=== PATIENT | female | born 1930 | race Caucasian/White ===

== ENCOUNTER 2017-02-06 14:09 | Emergency (ER) | payer MEDICARE, OTHER ==
[2017-02-06 14:51] LABS: Hematocrit 40.8 % (37.0-47.0); Hemoglobin 13.8 gm/dL (12.5-16.0); Mean Cell Volume 86.3 fl (78-100); Mean Corpuscular Hemoglobin 29.2 pg (27-31); Mean Corpuscular Hgb Conc 33.8 g/dl (32-36); Mean Platelet Volume 10.8 fl (6.0-9.5); Neutrophil # 5.4 K/mm3 (1.3-6.0); Neutrophil % 67.6 % (42-75.0); Platelet Count 257 K/mm3 (150-450); Red Blood Count 4.73 M/mm3 (4.2-5.4)
[2017-02-06 15:10] LABS: Albumin * 3.6 gm/dl (3.4-5.0); Anion Gap 13.7 mmol/L (6.8-13.8); BUN/Creatinine Ratio 20.3 (9.0-21.6); Bilirubin, Total 0.5 mg/dL (0.0-1.1); Ca. Corrected For Albumin 8.9 mg/dL (8.4-10.2); Calcium * 8.9 mg/dL (7.9-10.9); Carbon Dioxide 29.5 mmol/L (24-32.6); Potassium 4.2 mmol/L (3.4-4.6)
[2017-02-06] MEDS ORDERED: FUROSEMIDE 10 MG/ML VIAL IV ONE (15:17)
[2017-02-06] MEDS ORDERED: FUROSEMIDE 40 MG TABLET ONE (15:29)
[2017-02-06] MEDS ORDERED: FUROSEMIDE 40 MG TABLET PO ONE (15:30)
[2017-02-06 15:54] VITALS: BP 161/94
--- NOTE | 2017-02-06 16:14 | ERNOTE ---
Dyspnea - General Time Seen by Provider: 02/06/17 14:14 Source: patient Exam Limitations: no limitations - Immun/Allergies/Home Medications Immunizations: IMMUNIZATION HX Immunizations Up to Date No History of Influenza Vaccine Yes Allergies/Adverse Reactions: Allergies No Known Allergies Allergy (Verified 03/21/15 11:11) Home Medications: HOME MEDICATIONS Ascorbic Acid [Vitamin C] 500 mg PO DAILY 06/04/13 [Last Taken Unknown] Enalapril Maleate 10 mg PO DAILY 06/04/13 [Last Taken Unknown] Insulin Aspart [Novolog] 0 - 15 unit SQ ACHS 06/04/13 [Last Taken Unknown] Metoprolol Tartrate [Lopressor] 50 mg PO BID 06/04/13 [Last Taken Unknown] Multivit-Min/FA/Lycopene/Lut [Centrum Silver Tablet] 1 each PO DAILY 06/04/13 [ Last Taken Unknown] Insulin Detemir [Levemir] 40 units SQ HS 06/05/13 [Last Taken Unknown] Furosemide [Lasix] 20 mg PO DAILY 03/21/15 [Last Taken Unknown] Gabapentin 100 mg PO HS 03/21/15 [Last Taken Unknown] Warfarin Sodium [Coumadin] 6 mg PO DAILY 03/21/15 [Last Taken Unknown] traZODone HCL [Desyrel] 50 mg PO HS 03/21/15 [Last Taken Unknown] Atorvastatin Calcium [Lipitor] 20 mg PO DAILY 02/06/17 [Last Taken Unknown] traMADol HCL [Tramadol HCl] 50 mg PO PRN 02/06/17 [Last Taken Unknown] - History of Present Illness Narrative: 86-year-old female presents to the ER for progressive shortness of breath mostly in the morning. She denies any chest pain she states that she has become more short of breath in the morning when she gets up. She denies any swelling in her ankles. She has a history of atrial fibrillation and some CHF Review of Systems - Review of Systems Constitutional: Present: no symptoms reported EYE: Present: no symptoms reported ENT: Present: no symptoms reported Respiratory: Present: shortness of breath Cardiology: Present: no symptoms reported Gastrointestinal/Abdominal: Present: no symptoms reported Genitourinary: Present: no symptoms reported Musculoskeletal: Present: no symptoms reported Skin: Present: no symptoms reported - Patient's Past Medical History Patient History - Medical: Diabetes Type 2, Diabetes Type 2 Insulin Dependent, Other Patient History - Cardiac/Respiratory: Atrial Fibrillation, Hypertension, Hyperlipidemia Patient History - Cancer: No Hx of Cancer Patient History - Surgical Procedures: Total Knee Replacement Patient History - Other: None LMP (females 10-50): Menopausal - Family History parents Family History - Medical: - Social History Living Situations: home Abuse History: No History of abuse Psych History: Hx of Depression Smoking Status: Never smoker Alcohol Use: none Drug Use: none - Immunizations Immunizations Up to Date: No History of Influenza Vaccine: Yes Physical Exam - Physical Exam General Appearance: Present: wd/wn, alert, no apparent distress - initially patient appears short of breath because she just wants to the exam room however after having been in our ER and having been diuresed with 20 of Lasix patient feel significantly better Head Exam: Present: normal inspection, no evidence of injury Ears, Nose, Throat: Present: normal ENT inspection Neck: Present: normal inspection, nontender Respiratory: Present: no respiratory distress, normal breath sounds, no accessory muscle use, chest nontender, lungs clear Cardiovascular/Chest: Present: regular rate, rhythm, no murmur, normal peripheral pulses Back Exam: Present: normal inspection Extremity Exam: Present: normal inspection, non-tender, no edema. Absent: extremity edema ED Progress - Results and Orders Patient's Lab Results:: I have reviewed the patient's lab results. - Vital Signs Patient's Vital Signs:: I have reviewed the patient's vital signs. Vital Signs: Vital Signs 02/06/17 02/06/17 02/06/17 14:10 14:20 15:00 Temperature 36.7 C Pulse Rate 87 87 81 Respiratory 18 18 19 Rate Blood Pressure 145/81 145/81 168/95 O2 Sat by Pulse 96 96 96 Oximetry 02/06/17 02/06/17 15:32 15:53 Temperature Pulse Rate 92 91 Respiratory 19 Rate Blood Pressure 168/96 161/94 O2 Sat by Pulse 97 Oximetry - EKG EKG: NSR - Progress/Reassessment Chief Complaint: Dyspnea Plan - Plan Plan: Patient felt significantly better after 20 mg of Lasix by mouth. She was able to diurese and she ambulated without any shortness of breath and her oxygen saturation remained at 95% while ambulating. At this time the patient's diagnosis is mild CHF and she is going to follow up with her primary care doctor she is stable and appropriate for discharge Departure Clinical Impression: CHF (congestive heart failure) Qualifiers: Congestive heart failure type: unspecified congestive heart failure type Congestive heart failure chronicity: unspecified congestive heart failure chronicity Qualified Code(s): I50.9 - Heart failure, unspecified - Departure Disposition: Home self-care Condition: Good Instructions: Heart Failure, [id number] Additional Instructions: Please follow-up with your primary care doctor or come back to the ER if your shortness of breath gets worse.
== END 2017-02-06 16:15 | disposition home or self-care (01) ==
LOC: ER 14:09
DX: I50.9 Heart failure, unspecified (principal); E11.9 Type 2 diabetes mellitus without complications; Z79.4 Long term (current) use of insulin; I48.91 Unspecified atrial fibrillation; Z79.01 Long term (current) use of anticoagulants; I10 Essential (primary) hypertension; E78.5 Hyperlipidemia, unspecified

== ENCOUNTER 2017-05-25 07:34 | Observation (INO) ==
[2017-05-25 08:05] LABS: Hematocrit 36.4 % (37.0-47.0); Hemoglobin 12.4 gm/dL (12.5-16.0); Mean Cell Volume 86.1 fl (78-100); Mean Corpuscular Hemoglobin 29.3 pg (27-31); Mean Corpuscular Hgb Conc 34.1 g/dl (32-36); Mean Platelet Volume 10.6 fl (6.0-9.5); Neutrophil # 7.6 K/mm3 (1.3-6.0); Neutrophil % 75.4 % (42-75.0); Platelet Count 267 K/mm3 (150-450); Red Blood Count 4.23 M/mm3 (4.2-5.4); Red Cell Distribution Width 13.2 % (11.5-14.0)
[2017-05-25 08:15] LABS: Urine Appearance Clear; Urine Bacteria 1+; Urine Bilirubin Negative (NEGATIVE); Urine Blood Negative /ul (NEGATIVE); Urine Color Yellow; Urine Ketone Negative (NEGATIVE); Urine Nitrite Negative (NEGATIVE); Urine Protein Negative (NEGATIVE); Urine RBC 0-5 /hpf (0-5); Urine Specific Gravity 1.025 SP.GR. (1.005-1.010); Urine Urobilinogen Normal (NORMAL); Urine Yeast Few - 1+
[2017-05-25 08:24] LABS: Albumin * 3.2 gm/dl (3.4-5.0); Anion Gap 13.2 mmol/L (6.8-13.8); BUN/Creatinine Ratio 20.3 (9.0-21.6); Bilirubin, Total 0.9 mg/dL (0.0-1.1); CRP 8.3 mg/dL (0.0-0.9); Ca. Corrected For Albumin 8.9 mg/dL (8.4-10.2); Calcium * 8.6 mg/dL (7.9-10.9); Carbon Dioxide 28.9 mmol/L (24-32.6); Potassium 4.1 mmol/L (3.4-4.6); Total Protein 7.9 gm/dL (6.2-8.2); Uric Acid 8.7 mg/dL (2.6-7.2)
[2017-05-25] MEDS ORDERED: ERTAPENEM SODIUM 1,000 MG in NORMAL SALINE 50 ML IV ONE (08:30)
[2017-05-25 09:09] LABS: Prothrombin Time (Patient) 21.4 Seconds (9.0-11.0)
[2017-05-25 09:12] LABS: INR 2.12 INR (0.90-1.10)
[2017-05-25] MEDS ORDERED: COLCHICINE 0.6 MG TABLET PO ONE (09:13)
--- NOTE | 2017-05-25 09:13 | ERNOTE ---
Integumentary HPI - Narrative Date of Service: 05/25/17 - General Presenting Symptoms: other - foot pain Time Seen by Provider: 05/25/17 07:58 Source: patient, family Exam Limitations: no limitations - Immun/Allergies/Home Medications Immunizations: IMMUNIZATION HX Immunizations Up to Date Yes History of Influenza Vaccine Yes Hx Pneumococcal Vaccination Yes Allergies/Adverse Reactions: Allergies Allergy/AdvReac Type Severity Reaction Status Date / Time No Known Allergies Allergy Verified 05/25/17 07:44 Home Medications: HOME MEDICATIONS Ascorbic Acid [Vitamin C] 500 mg PO DAILY 06/04/13 [Last Taken Unknown] Enalapril Maleate 10 mg PO DAILY 06/04/13 [Last Taken Unknown] Insulin Aspart [Novolog] 0 - 15 unit SQ ACHS 06/04/13 [Last Taken Unknown] Metoprolol Tartrate [Lopressor] 50 mg PO BID 06/04/13 [Last Taken Unknown] Multivit-Min/FA/Lycopene/Lut [Centrum Silver Tablet] 1 each PO DAILY 06/04/13 [ Last Taken Unknown] Insulin Detemir [Levemir] 40 units SQ HS 06/05/13 [Last Taken Unknown] Furosemide [Lasix] 20 mg PO DAILY 03/21/15 [Last Taken Unknown] Gabapentin 100 mg PO HS 03/21/15 [Last Taken Unknown] Warfarin Sodium [Coumadin] 6 mg PO DAILY 03/21/15 [Last Taken Unknown] traZODone HCL [Desyrel] 50 mg PO HS 03/21/15 [Last Taken Unknown] Atorvastatin Calcium [Lipitor] 20 mg PO DAILY 02/06/17 [Last Taken Unknown] traMADol HCL [Tramadol HCl] 50 mg PO PRN 02/06/17 [Last Taken Unknown] Cefuroxime Axetil [Ceftin] 250 mg PO Q12H #14 tab 05/21/17 [Last Taken Unknown] - History of Present Illness Narrative: Patient presents to the ED for worsening pain, worsening redness right foot. She was seen here 4 days ago with foot pain on the right and redness. Had an extensive workup at that time. Despite outpatient antibiotics has worsened with increased redness and swelling, increased pain right foot. Chandan pain has gotten so bad that she cannot get out of bed. It took 2 people to help her get in today. No clear fevers. No acute weakness. Location: Reports: other - right foot Quality: Reports: painful Severity: severe Modifying Factors - (Improves): Reports: other - rest Modifying Factors - (Worsens): Reports: other - movement, weight bearing Associated Symptoms: Denies: fever Prior Treatment: Reports: recently seen, currently on antibiotics Review of Systems - Review of Systems Constitutional: Absent: fever ENT: Absent: sore throat Respiratory: Absent: shortness of breath Cardiology: Absent: chest pain Gastrointestinal/Abdominal: Absent: abdominal pain Genitourinary: Absent: dysuria Musculoskeletal: Present: See HPI Skin: Present: See HPI Neurological: Absent: weakness - Patient's Past Medical History Patient History - Medical: Diabetes Type 2, Diabetes Type 2 Insulin Dependent, Other Patient History - Cardiac/Respiratory: Atrial Fibrillation, Hypertension, Hyperlipidemia Patient History - Cancer: No Hx of Cancer Patient History - Surgical Procedures: Appendectomy, Hysterectomy, Total Knee Replacement Patient History - Other: None LMP (females 10-50): Menopausal - Family History parents Family History - Medical: - Social History Living Situations: home Abuse History: No History of abuse Psych History: Hx of Depression Smoking Status: Never smoker Alcohol Use: none Drug Use: none - Immunizations Immunizations Up to Date: Yes Hx Pneumococcal Vaccination: Yes History of Influenza Vaccine: Yes Physical Exam - Physical Exam General Appearance: Present: alert, no apparent distress Head Exam: Present: normal inspection Eye Exam: Normal inspection: bilateral, PERRL: bilateral Ears, Nose, Throat: Present: normal ENT inspection Neck: Present: normal inspection Respiratory: Present: no respiratory distress, normal breath sounds, no accessory muscle use, lungs clear Cardiovascular/Chest: Present: regular rate, rhythm, normal peripheral pulses Gastrointestinal/Abdominal: Present: normal bowel sounds, nontender, nondistended, soft Back Exam: Absent: CVA tenderness (R), CVA tenderness (L) Extremity Exam: Present: other - warmth and redness right lateral foot. This is clinically c/w cellulitis. No abscess, no nec fasc. Neurological Exam: Present: alert, no motor/sensory deficits Skin Exam: Present: normal color, warm/dry ED Progress - Results and Orders Patient's Lab Results:: I have reviewed the patient's lab results. - Vital Signs Patient's Vital Signs:: I have reviewed the patient's vital signs. Vital Signs: Vital Signs 05/25/17 05/25/17 05/25/17 07:36 08:12 08:45 Temperature 36.9 C Pulse Rate 120 H 127 H 122 H Respiratory 16 17 16 Rate Blood Pressure 150/104 151/83 143/95 O2 Sat by Pulse 96 97 99 Oximetry - X-Ray X-Ray #1 X-Ray: foot Interpretation: Interp. by me X-ray Comments: I reviewed official radiology report - Progress/Reassessment Chief Complaint: Cellulitis Progress Note-Subjective: 05/25/17 09:11 IV abx given. Failure or outpatient management. Pt cannot get around at home, given pain and Sx. I spoke with Dr Machado who will admit. Departure Clinical Impression: Failure of outpatient treatment, Cellulitis, Gout - Departure Disposition: [facility] Condition: Stable
[2017-05-25] MEDS ORDERED: COLCHICINE 0.6 MG TABLET ONE (09:17)
[2017-05-25] MEDS ORDERED: NORMAL SALINE 500 ML IV ONE (11:02)
[2017-05-25] MEDS: ENALAPRIL MALEATE 5 MG TABLET PO SCH (11:58)
[2017-05-25] MEDS: LEVOFLOXACIN IN DEXTROSE 5 % 500 MG/100 ML BAG IV SCH (12:06)
--- NOTE | 2017-05-25 12:43 | HP ---
Chief Complaint - Chief Complaint Date of Service: 05/25/17 Time of Service: 10:00 Chief Complaint: seizures History of Present Illness: Verónica Moreno is an 86-year-old female who is developed severe pain in her right lateral foot with redness swelling fever and pain present. She is unable to bear weight on the foot at this time. She has a history of gouty arthritis of the great toes and has noticed some redness this morning and the right toe although it is not yet painful. 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 Patient History - Cardiac/Respiratory: Atrial Fibrillation, Hypertension, Hyperlipidemia Patient History - Cancer: No Hx of Cancer Patient History - Surgical Procedures: Appendectomy, D & C, Hysterectomy, Total Knee Replacement Patient History - Other: None LMP (females 10-50): Menopausal - Family History parents Family History - Medical: - Social History Living Situations: alone Abuse History: No History of abuse Psych History: Hx of Depression Smoking Status: Former smoker Have you smoked in the past 12 months: No Alcohol Use: none Drug Use: none - Immunizations Immunizations Up to Date: Yes Hx Pneumococcal Vaccination: Yes History of Influenza Vaccine: Yes Review Of Systems (GEN) - Review of Systems Generalized/Overall Review: Present: No Symptoms Reported EENTM: Present: No Symptoms Reported Respiratory: Present: No Symptoms Reported Cardiac: Present: No Symptoms Reported, Other - History of atrial fibrillation Abdominal: Present: No Symptoms Reported Genitourinary: Present: No Symptoms Reported Musculoskeletal: Present: Joint Pain, Gout, Other - Soft tissue pain right lateral foot Neurological: Present: No Symptoms Reported Skin: Present: No Symptoms Reported, Dryness Endocrine: Present: No Symptoms Reported, Other - Insulin-dependent diabetes mellitus Misc: All systems neg except as marked Allergies/Adverse Reactions: Allergies Allergy/AdvReac Type Severity Reaction Status Date / Time No Known Allergies Allergy Verified 05/25/17 10:43 Home Medications: HOME MEDICATIONS Ascorbic Acid [Vitamin C] 500 mg PO DAILY 06/04/13 [Last Taken Unknown] Enalapril Maleate 10 mg PO DAILY 06/04/13 [Last Taken Unknown] Insulin Aspart [Novolog] 0 - 15 unit SQ ACHS 06/04/13 [Last Taken Unknown] Metoprolol Tartrate [Lopressor] 50 mg PO BID 06/04/13 [Last Taken Unknown] Multivit-Min/FA/Lycopene/Lut [Centrum Silver Tablet] 1 each PO DAILY 06/04/13 [ Last Taken Unknown] Insulin Detemir [Levemir] 40 units SQ HS 06/05/13 [Last Taken Unknown] Furosemide [Lasix] 40 mg PO DAILY 03/21/15 [Last Taken Unknown] Gabapentin 100 mg PO HS 03/21/15 [Last Taken Unknown] Warfarin Sodium [Coumadin] 5 mg PO DAILY 03/21/15 [Last Taken Unknown] traZODone HCL [Desyrel] 50 mg PO HS 03/21/15 [Last Taken Unknown] Atorvastatin Calcium [Lipitor] 20 mg PO DAILY 02/06/17 [Last Taken Unknown] traMADol HCL [Tramadol HCl] 50 mg PO PRN 02/06/17 [Last Taken Unknown] Cefuroxime Axetil [Ceftin] 250 mg PO Q12H #14 tab 05/21/17 [Last Taken Unknown] Exam - Exam Vital Signs: Vital Signs - Last Taken Temp 37.2 C 05/25/17 10:04 Pulse 110 H 05/25/17 11:58 Resp 18 05/25/17 10:04 BP 126/71 05/25/17 11:58 Pulse Ox 95 05/25/17 10:04 Constitutional: Present: Alert, Oriented x3, Cooperative, Well developed, Well nourished, Mild distress, Elderly, Obese ENT Exam: Present: normal ENT inspection Eye Exam: bilateral eye: normal inspection, PERRL, EOMI Neck: Present: non-tender, full range of motion Back Exam: Present: normal inspection Breasts: Present: Exam deferred Respiratory: Present: chest non-tender, lungs clear, normal breath sounds, no respiratory distress, no accessory muscle use Cardiovascular/Chest: Present: normal peripheral pulses, no chest tenderness, no edema, no JVD, no murmur, no rub, tachycardia, irregularly irregular Peripheral Pulses: carotid (R): 2+, carotid (L): 2+, femoral (R): 2+, femoral (L ): 2+, dorsalis-pedis (R): 2+, dorsalis-pedis (L): 2+, radial (R): 2+, radial (L ): 2+ Abdomen: Present: Normal bowel sounds, soft, nontender, nondistended, no rebound tenderness, no hepatospenomegaly /Rectal: Present: Exam deferred Extremity: Present: normal range of motion, no calf tenderness, normal capillary refill, inflammation, pedal edema, swelling. Absent: claudication, calf tenderness Skin Exam: Present: normal color, pallor Lymphatic: Present: no adenopathy Neurologic: Present: flat folder II-XII nml as tested, normal cerebellar test, no motor/ sensory deficits, alert, normal mood/affect, oriented x 3, abnormal gait - Unable to bear weight on the right foot. Absent: abnormal cerebellar tests, motor weakness, sensory deficit, depressed affect Appearance: Present: appropriate appearance, appropriate insight, neat, no memory impairment Eye contact: Present: cooperative, good eye contact, normal speech Thoughts: Present: normal thought pattern, no apparent hallucination, auditory hallucinations, normal mood /affect. Absent: delusions Diagnostic Studies: Laboratory Results WBC 10.0 K/mm3 (4.0-10.5) 05/25/17 08:03 RBC 4.23 M/mm3 (4.2-5.4) 05/25/17 08:03 Hgb 12.4 gm/dL (12.5-16.0) L 05/25/17 08:03 Hct 36.4 % (37.0-47.0) L 05/25/17 08:03 MCV 86.1 fl (78-100) 05/25/17 08:03 MCH 29.3 pg (27-31) 05/25/17 08:03 MCHC 34.1 g/dl (32-36) 05/25/17 08:03 RDW 13.2 % (11.5-14.0) 05/25/17 08:03 Plt Count 267 K/mm3 (150-450) 05/25/17 08:03 MPV 10.6 fl (6.0-9.5) H 05/25/17 08:03 Immature Gran % (Auto) 0.50 % (0.001-0.429) H 05/25/17 08:03 Immature Gran # (Auto) 0.05 K/mm3 (0.000-0.0310) H 05/25/17 08:03 Neutrophils % 75.4 % (42-75.0) H 05/25/17 08:03 Lymphocytes % 13.9 % (20-51) L 05/25/17 08:03 Monocytes % 8.6 % (0.0-9) 05/25/17 08:03 Eosinophils % 0.9 % (0.0-3.0) 05/25/17 08:03 Basophils % 0.7 % (0.0-1.0) 05/25/17 08:03 Nucleated RBC % 0.0 k/mm3 (0-1) 05/25/17 08:03 Neutrophils # 7.6 K/mm3 (1.3-6.0) H 05/25/17 08:03 Lymphocytes # 1.4 k/mm3 (1.5-3.5) L 05/25/17 08:03 Monocytes # 0.9 k/mm3 (0.0-1.0) 05/25/17 08:03 Eosinophils # 0.1 k/mm3 (0.0-0.7) 05/25/17 08:03 Absolute Basophils 0.1 k/mm3 (0.0-0.1) 05/25/17 08:03 PT 21.4 Seconds (9.0-11.0) H 05/25/17 08:35 INR (Anticoag Therapy) 2.12 INR (0.90-1.10) H 05/25/17 08:35 Sodium 135 mmol/L (132-142) 05/25/17 08:00 Plasma Sodium 136 mmol/L (130-142) 05/25/17 08:00 Potassium 4.1 mmol/L (3.4-4.6) 05/25/17 08:00 Chloride 97 mmol/L (97-106) 05/25/17 08:00 Carbon Dioxide 28.9 mmol/L (24-32.6) 05/25/17 08:00 Anion Gap 13.2 mmol/L (6.8-13.8) 05/25/17 08:00 BUN 31 mg/dL (3-23) H 05/25/17 08:00 Creatinine 1.53 mg/dL (0.4-1.4) H 05/25/17 08:00 Est GFR (Non-Af Amer) 34 mL/min (60-130) L 05/25/17 08:00 BUN/Creatinine Ratio 20.3 (9.0-21.6) 05/25/17 08:00 Random Glucose 184 mg/dL (70-110) H 05/25/17 08:00 Uric Acid 8.7 mg/dL (2.6-7.2) H 05/25/17 08:00 Calcium 8.6 mg/dL (7.9-10.9) 05/25/17 08:00 Calcium Adj for Albumin 8.9 mg/dL (8.4-10.2) 05/25/17 08:00 Total Bilirubin 0.9 mg/dL (0.0-1.1) 05/25/17 08:00 AST 21 U/L (0-48) 05/25/17 08:00 ALT 20 U/L (19-67) 05/25/17 08:00 Alkaline Phosphatase 119 U/L (50-170) 05/25/17 08:00 C-Reactive Prot, Quant 8.3 mg/dL (0.0-0.9) H 05/25/17 08:00 Total Protein 7.9 gm/dL (6.2-8.2) 05/25/17 08:00 Albumin 3.2 gm/dl (3.4-5.0) L 05/25/17 08:00 Urine Color Yellow 05/25/17 07:50 Urine Appearance Clear 05/25/17 07:50 Urine pH 6.0 pH (5.0-7.0) 05/25/17 07:50 Ur Specific Anderson 1.025 SP.GR. (1.005-1.010) 05/25/17 07:50 Urine Protein Negative mg/dL (NEGATIVE) 05/25/17 07:50 Urine Glucose (UA) Negative mg/dL (NEGATIVE) 05/25/17 07:50 Urine Ketones Negative mg/dL (NEGATIVE) 05/25/17 07:50 Urine Blood Negative /ul (NEGATIVE) 05/25/17 07:50 Urine Nitrate Negative (NEGATIVE) 05/25/17 07:50 Urine Bilirubin Negative mg/dl (NEGATIVE) 05/25/17 07:50 Urine Urobilinogen Normal EU/dl (NORMAL) 05/25/17 07:50 Ur Leukocyte Esterase 100 /ul (NEGATIVE) H 05/25/17 07:50 Urine RBC 0-5 /hpf (0-5) 05/25/17 07:50 Urine WBC 10-25 /hpf (0-5) H 05/25/17 07:50 Ur Epithelial Cells 0-5 /hpf (0-5) 05/25/17 07:50 Urine Bacteria 1+ (NONE) H 05/25/17 07:50 Urine Yeast Few - 1+ (NONE) H 05/25/17 07:50 Urine Culture Comments Culture to follow 05/25/17 07:50 Assessment/Plan - Narrative Narrative: In treatment of the cellulitis I have chosen levofloxacin. She had a home treatment failure of Ceftin. This is corrected for her chronic stage III CAD. A dose of colchicine was given in the emergency room for her hyperuricemia and perhaps early signs of gout with some mild redness of the right great impinging. Because of her CKD she cannot have NSAID therapy and because of her and as some of the diabetes and reluctant to give her steroids. We'll have to monitor the effectiveness of the antibiotic and reducing the pain and swelling in the right lateral foot. She should not be on allopurinol also because of her CKD today. We will begin progressing her weightbearing as pain allows. Hopefully she'll be able to be discharged tomorrow - Assessment/Plan (1) Cellulitis Assessment: Right foot Problem: Acute Qualifiers: Site of cellulitis: other site Qualified Code(s): L03.818 - Cellulitis of other sites (2) Chronic kidney disease (CKD) stage G3b/A1, moderately decreased glomerular filtration rate (GFR) between 30-44 mL/min/1.73 square meter and albuminuria creatinine ratio less than 30 mg/g Problem: Chronic (3) Diabetes mellitus, insulin dependent (IDDM), controlled Problem: Chronic (4) Gout Problem: Chronic Qualifiers: Gout site: foot Gout etiology: due to renal impairment Chronicity: chronic Laterality: unspecified laterality Presence of tophus: without tophus Qualified Code(s): 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 Moreno is currently not ambulatory and unable to bear weight on her right foot. She lives alone in a private residence and would be unable to care for herself at present. Problem: Acute Qualifiers: Chronicity: acute Qualified Code(s): M10.372 - Gout due to renal impairment , left ankle and foot
[2017-05-25] MEDS: WARFARIN SODIUM 5 MG TABLET PO SCH (17:37)
[2017-05-25] MEDS ORDERED: SENNOSIDES/DOCUSATE SODIUM 1 TAB TABLET PO SCH (19:30)
[2017-05-25] MEDS ORDERED: traMADol HCL 50 MG TABLET PO ONE (21:00)
[2017-05-25] MEDS: traZODone HCL 50 MG TABLET PO SCH (22:09)
[2017-05-25] MEDS: METOPROLOL TARTRATE 50 MG TABLET PO SCH (22:10)
[2017-05-25] MEDS: GABAPENTIN 100 MG CAPSULE PO SCH (22:10)
[2017-05-25] MEDS: SENNOSIDES/DOCUSATE SODIUM 1 TAB TABLET PO SCH (22:11)
[2017-05-25] MEDS: INSULIN DETEMIR 100 UNITS/ML VIAL SC SCH (22:15)
[2017-05-26 06:29] LABS: Prothrombin Time (Patient) 21.3 Seconds (9.0-11.0)
[2017-05-26 06:30] LABS: Anion Gap 6.8 mmol/L (6.8-13.8); BUN/Creatinine Ratio 17.5 (9.0-21.6); Calcium * 8.5 mg/dL (7.9-10.9); Carbon Dioxide 30.1 mmol/L (24-32.6); Estimated Creat Clear 25.5; INR 2.11 INR (0.90-1.10); Potassium 3.9 mmol/L (3.4-4.6)
[2017-05-26 06:32] LABS: Hematocrit 32.6 % (37.0-47.0); Hemoglobin 11.1 gm/dL (12.5-16.0); Mean Cell Volume 85.3 fl (78-100); Mean Corpuscular Hemoglobin 29.1 pg (27-31); Mean Platelet Volume 10.9 fl (6.0-9.5); Neutrophil # 3.9 K/mm3 (1.3-6.0); Neutrophil % 60.6 % (42-75.0); Platelet Count 247 K/mm3 (150-450); Red Blood Count 3.82 M/mm3 (4.2-5.4); Red Cell Distribution Width 13.1 % (11.5-14.0); White Blood Count 6.4 K/mm3 (4.0-10.5)
[2017-05-26] MEDS: ENALAPRIL MALEATE 5 MG TABLET PO SCH (08:43)
[2017-05-26] MEDS: METOPROLOL TARTRATE 50 MG TABLET PO SCH ×2 (08:44→21:28)
--- NOTE | 2017-05-26 10:45 | PN ---
Subjective - Date and Time Seen Date: 05/26/17 Time: 10:36 Subjective Narrative: Verónica is feeling some better this morning she can put a little weight on the right foot now that she cannot ambulate on it still because of significant pain. She has no other complaints or requests. Objective - Review of Systems Generalized/Overall Review: Reports: No Symptoms Reported EENTM: Reports: No Symptoms Reported Respiratory: Reports: No Symptoms Reported Cardiac: Reports: No Symptoms Reported Abdominal: Reports: No Symptoms Reported Genitourinary Symptoms: Reports: No Symptoms Reported Musculoskeletal Complaints: Reports: Other - Pain and redness swelling in the right foot have all improved slightly. Neurological: Reports: No Symptoms Reported Skin: Reports: No Symptoms Reported Endocrine: Reports: No Symptoms Reported - Vitals Vitals: Last Vital Signs Temp 36.8 C 05/26/17 07:39 Pulse 94 05/26/17 08:44 Resp 18 05/26/17 07:39 BP 148/75 05/26/17 08:44 Pulse Ox 96 05/26/17 07:39 - Abnormal Lab Findings Abnormal Lab Findings: Abnormal Lab Results 05/26/17 05/26/17 05/26/17 Range/Units 06:00 06:00 06:00 RBC 3.82 L (4.2-5.4) M/mm3 Hgb 11.1 L (12.5-16.0) gm/dL Hct 32.6 L (37.0-47.0) % MPV 10.9 H (6.0-9.5) fl Monocytes % 10.6 H (0.0-9) % PT 21.3 H (9.0-11.0) Seconds INR (Anticoag Therapy) 2.11 H (0.90-1.10) INR BUN 25 H (3-23) mg/dL Creatinine 1.43 H (0.4-1.4) mg/dL Est GFR (Non-Af Amer) 37 L (60-130) mL/min Random Glucose 130 H (70-110) mg/dL - Exam Constitutional: Present: Alert, Oriented x3, Cooperative, Well developed, Well nourished, No distress ENT Exam: Present: normal ENT inspection Neck: Present: non-tender, full range of motion, supple Breasts: Present: Exam deferred Respiratory: Present: chest non-tender, lungs clear, normal breath sounds, no respiratory distress, no accessory muscle use Cardiovascular/Chest: Present: normal peripheral pulses, regular rate, rhythm, no chest tenderness, no edema - Except in the right foot Abdomen: Present: Normal bowel sounds, soft, nontender, nondistended, no rebound tenderness /Rectal: Present: Exam deferred Extremity: Present: normal range of motion, pedal edema, swelling, other - With erythema and fever. The redness has subsided some from the pen marking. 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 Appearance: Present: appropriate appearance, appropriate insight, neat, no memory impairment, denies illness Eye contact: Present: cooperative, good eye contact, normal speech Thoughts: Present: normal thought pattern, no apparent hallucination Assessment/Plan Plan Narrative: He seems to be responding to antibiotic therapy for treating of her cellulitis in the right foot. We will continue the same and add physical therapy to see if we can improve some of her mobility. She cannot take NSAID therapy because of her chronic kidney disease and should not take steroids because of her asthma and diabetes mellitus. Otherwise she is doing well without complaint. - Problems/Diagnosis (1) Cellulitis Problem: Acute Qualifiers: Site of cellulitis: other site Qualified Code(s): L03.818 - Cellulitis of other sites (2) Chronic kidney disease (CKD) stage G3b/A1, moderately decreased glomerular filtration rate (GFR) between 30-44 mL/min/1.73 square meter and albuminuria creatinine ratio less than 30 mg/g Problem: Chronic (3) Diabetes mellitus, insulin dependent (IDDM), controlled Problem: Chronic (4) Gout Problem: Chronic Qualifiers: Gout site: foot Gout etiology: due to renal impairment Chronicity: chronic Laterality: unspecified laterality Presence of tophus: without tophus Qualified Code(s): M1A.3790 - Chronic gout due to renal impairment, unspecified ankle and foot, without tophus (tophi) (5) 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
[2017-05-26] MEDS: ACETAMINOPHEN 500 MG TABLET PO PRN (20:01)
[2017-05-26] MEDS ORDERED: traMADol HCL 50 MG TABLET PO SCH (21:00)
[2017-05-26] MEDS: WARFARIN SODIUM 5 MG TABLET PO SCH (21:27)
[2017-05-26] MEDS: GABAPENTIN 100 MG CAPSULE PO SCH (21:29)
[2017-05-26] MEDS: SENNOSIDES/DOCUSATE SODIUM 1 TAB TABLET PO SCH (21:29)
[2017-05-26] MEDS: traZODone HCL 50 MG TABLET PO SCH (21:29)
[2017-05-26] MEDS: INSULIN DETEMIR 100 UNITS/ML VIAL SC SCH (21:35)
[2017-05-27 05:52] LABS: Prothrombin Time (Patient) 19.2 Seconds (9.0-11.0)
[2017-05-27 05:58] LABS: INR 1.91 INR (0.90-1.10)
[2017-05-27] MEDS: METOPROLOL TARTRATE 50 MG TABLET PO SCH (08:45)
[2017-05-27] MEDS: ENALAPRIL MALEATE 5 MG TABLET PO SCH (08:45)
[2017-05-27 10:44] VITALS: BP 148/83
[2017-05-27] MEDS: LEVOFLOXACIN IN DEXTROSE 5 % 500 MG/100 ML BAG IV SCH (11:30)
--- NOTE | 2017-05-27 11:32 | DS ---
(1) Cellulitis Problem: Acute Qualifiers: Site of cellulitis: other site Qualified Code(s): L03.818 - Cellulitis of other sites (2) Chronic kidney disease (CKD) stage G3b/A1, moderately decreased glomerular filtration rate (GFR) between 30-44 mL/min/1.73 square meter and albuminuria creatinine ratio less than 30 mg/g Problem: Chronic (3) Diabetes mellitus, insulin dependent (IDDM), controlled Problem: Chronic (4) Gout Problem: Chronic Qualifiers: Gout site: foot Gout etiology: due to renal impairment Chronicity: chronic Laterality: unspecified laterality Presence of tophus: without tophus Qualified Code(s): M1A.3790 - Chronic gout due to renal impairment, unspecified ankle and foot, without tophus (tophi) (5) 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 The foot was hot red swollen and painful. It affected primarily the lateral aspect of the foot. She was started on oral antibiotics to treat the cellulitis. Because of her stage IIIB CK D she is unable to take NSAID therapy and because of her IDDM I elected not to give her steroids. Therefore treating this would take longer to get the inflammation settle down but was safer. She was treated with IV antibiotics and leg elevation. She improved on the third day for not being able to stand and bear any weight to being able to stand to bear weight and then later was able to walk. She made actually dramatic improvement over the 72 hours. She was discharged ambulatory to home to continue with home health. She is also to continue oral antibiotics at home. Procedures Performed: none Results and Findings: Laboratory Tests 05/25/17 05/25/17 05/25/17 07:50 08:00 08:03 WBC 10.0 Hgb 12.4 L Hct 36.4 L Neutrophils % 75.4 H Lymphocytes % 13.9 L INR (Anticoag Therapy) BUN 31 H Creatinine 1.53 H Random Glucose 184 H Uric Acid 8.7 H C-Reactive Prot, Quant 8.3 H Albumin 3.2 L Urine Color Yellow Urine Appearance Clear Urine pH 6.0 Ur Specific [place] 1.025 Urine Protein Negative Urine Glucose (UA) Negative Urine Ketones Negative Urine Blood Negative Urine Nitrate Negative Ur Leukocyte Esterase 100 H Urine WBC 10-25 H Urine Bacteria 1+ H 05/25/17 05/26/17 05/26/17 08:35 06:00 06:00 WBC 6.4 D Hgb 11.1 L Hct 32.6 L Neutrophils % 60.6 Lymphocytes % 26.3 INR (Anticoag Therapy) 2.12 H 2.11 H BUN Creatinine Random Glucose Uric Acid C-Reactive Prot, Quant Albumin Urine Color Urine Appearance Urine pH Ur Specific [place] Urine Protein Urine Glucose (UA) Urine Ketones Urine Blood Urine Nitrate Ur Leukocyte Esterase Urine WBC Urine Bacteria 05/26/17 05/27/17 06:00 05:35 WBC Hgb Hct Neutrophils % Lymphocytes % INR (Anticoag Therapy) 1.91 H BUN 25 H Creatinine 1.43 H Random Glucose 130 H Uric Acid C-Reactive Prot, Quant Albumin Urine Color Urine Appearance Urine pH Ur Specific [place] Urine Protein Urine Glucose (UA) Urine Ketones Urine Blood Urine Nitrate Ur Leukocyte Esterase Urine WBC Urine Bacteria Discharge Disposition: Home w/home health care Disposition: Other home health Condition: Fair Discharge Activity: Activity as tolerated, Weight bearing Discharge Diet: General/regular food, Other - Low purine foods. Problem Oriented Discharge Instructions to Patient/Family: Gout, [id number], Cellulitis, Adult, [id number] Additional Patient Instructions (free text): .[facility] and send information at discharge. Please call [facility] at discharge [phone], fax #[phone]. Follow up with Dr. Machado in 2 weeks [facility] will call you with follow up appointment on Monday. INR in 1 week. Please add PT to current services through [facility]. Prescriptions (Any new or edited meds): Ciprofloxacin HCl 500 mg PO BID 7 Days #14 tablet Complete Home Medications List: Complete Home Medication List: Ascorbic Acid [Vitamin C] 500 mg PO DAILY 06/04/13 Enalapril Maleate 10 mg PO DAILY 06/04/13 Insulin Aspart [Novolog] 0 - 15 unit SQ ACHS 06/04/13 Metoprolol Tartrate [Lopressor] 50 mg PO BID 06/04/13 Multivit-Min/FA/Lycopene/Lut [Centrum Silver Tablet] 1 each PO DAILY 06/04/13 Insulin Detemir [Levemir] 40 units SQ HS 06/05/13 Furosemide [Lasix] 40 mg PO DAILY 03/21/15 Gabapentin 100 mg PO HS 03/21/15 Warfarin Sodium [Coumadin] 5 mg PO DAILY 03/21/15 traZODone HCL [Desyrel] 50 mg PO HS 03/21/15 traMADol HCL [Tramadol HCl] 50 mg PO PRN 02/06/17 Acetaminophen [Tylenol] 1,000 mg PO Q6H PRN tablet 05/27/17 Ciprofloxacin HCl 500 mg PO BID 7 Days #14 tablet 05/27/17 Sennosides/Docusate Sodium [Senokot-S] 2 tab PO HS tablet 05/27/17 Amb Orders for Discharge: Prothrombin Time Time Frame: 1 Week, Location: Determined By Patient
[2017-05-27] MEDS: ACETAMINOPHEN 500 MG TABLET PO PRN (12:41)
== END 2017-05-27 15:54 | disposition home or self-care (01) ==
LOC: ER 07:34 → MS 09:09 → INTOOBSV 11:10 → OBSVTOIN 11:10
PROVIDERS: ADMIT Family Medicine; ATTEND Family Medicine
DX: I48.2 Chronic atrial fibrillation; I12.9 Hypertensive chronic kidney disease with stage 1 through stage 4 chronic kidney disease, or unspecified chronic kidney disease; E11.22 Type 2 diabetes mellitus with diabetic chronic kidney disease; E78.5 Hyperlipidemia, unspecified; M10.372 Gout due to renal impairment, left ankle and foot; N08 Glomerular disorders in diseases classified elsewhere; L03.115 Cellulitis of right lower limb; Z79.4 Long term (current) use of insulin; M1A.3720 Chronic gout due to renal impairment, left ankle and foot, without tophus (tophi)
CPT/HCPCS: 36415; 73630; 80048; 80053; 81001; 84550; 85025; 85610; 86140; 87040; 87086; 96361; 96365; 96367; 96372; 97110; 97116; 97161; 99284; G0378